=== PATIENT | male | born 1995 | race Caucasian/White ===

== ENCOUNTER → 2017-05-05 | Outpatient (CLI) | payer BC ==
[~2017-05-05] MED LIST: ARIP15TA PO; OMEG10007 PO; TERBINAFINE
--- NOTE | 2017-05-05 14:06 | DIAGNOSTIC IMAGING REPORT ---
AP STANDING VIEW OF BOTH KNEES; 3 VIEWS LEFT KNEE CLINICAL HISTORY: Chronic patellofemoral pain. FINDINGS: An AP standing view of both knees with lateral, sunrise, and tunnel views of the left knee are obtained. No prior studies are available for comparison at the time of dictation. The skeletal structures are well mineralized. No fracture is seen. The joint spaces of the knee are well-maintained. No osteochondral defect is identified on the tunnel view. Bony overgrowth is noted from the tibial tuberosity. There is no joint effusion. The overlying soft tissues are within normal limits. Survey images of the right knee on the frontal view show no abnormality. IMPRESSION: No acute bony abnormality is seen involving the left knee. Electronically signed by: Bhupinder Valverde M.D. 05/05/2017 2:05 PM Dictated Date/Time: 05/05/2017 2:04 PM
== END | disposition home or self-care (01) ==
LOC: C.RDSM 13:41
PROVIDERS: ATTEND Family Medicine
DX: M22.2X2 Patellofemoral disorders, left knee (principal)